=== PATIENT | female | born 1965 | race Caucasian/White ===

== ENCOUNTER 2016-12-23 22:37 | Emergency (ER) | payer SELFPAY ==
[~2016-12-23] VITALS: Ht 162.6 cm; Wt 88.6 kg
[~2016-12-23 22:37] MED LIST: METF500T PO; OMEP10EC PO
[2016-12-23 22:52] VITALS: BP 196/83
--- NOTE | 2016-12-23 23:23 | NUR ---
Patient being evaluated by physician at bedside.
--- NOTE | 2016-12-23 23:23 | NUR ---
PT AMBULATED TO ER BED GI
[2016-12-23 23:48] LABS: EOSINOPHILS # (AUTO) 0.1 K/uL (0-0.4)
[2016-12-23 23:51] LABS: BASOPHILS # (AUTO) 0.3 K/uL (0.00-0.22); BASOPHILS % (AUTO) 3.9 % (0.0-2.0); EOSINOPHILS % (AUTO) 1.4 % (0.0-4.0); HEMATOCRIT 42.6 % (36-48); HEMOGLOBIN 14.1 g/dL (12.0-16.0); LYMPHOCYTES # (AUTO) 2.9 K/uL (2.5-16.5); MEAN CORPUSCULAR HEMOGLOBIN 29 pg (27-31); MEAN CORPUSCULAR HGB CONC 33 g/dL (33-37); MEAN CORPUSCULAR VOLUME 88 fL (80-94); MONOCYTES # (AUTO) 0.7 K/uL (0.8-1.0); MONOCYTES % (AUTO) 9.1 % (1.7-9.3); NEUTROPHILS % (AUTO) 49.6 % (42.2-75.2); PLATELET COUNT (AUTO) 255 K/uL (140-450); RED BLOOD CELL COUNT(AUTO) 4.85 MIL/uL (4.20-5.40); RED CELL DISTRIBUTION WIDTH 12.8 % (11.6-13.7)
--- NOTE | 2016-12-23 23:58 | NUR ---
51Y/F PT. PRESENTS TO ED WITH C/O CHEST PAIN X3 DAYS. SEEN AT [facility] 2 DAYS AGO FOR SAME THING, DIAGNOSED FOR NON-SPECIFIC CHEST PAIN AND HTN. AAO X4, AMBULATORY WITH STEADY GAIT. RESPIRATIONS ROOM AIR, EVEN AND UNLABORED. SKIN WARM AND DRY. C/O CHEST PAIN 10. VSS, ER MADE AWARE OF PT. STATUS.
[2016-12-24 00:04] LABS: ANION GAP 16.9 (8-16); CARBON DIOXIDE 26.3 mmol/L (21-32); CREATININE 0.9 mg/dL (0.6-1.3); POTASSIUM 3.2 mmol/L (3.5-5.1)
[2016-12-24 00:09] LABS: ALBUMIN 3.9 g/dL (3.4-5.0); TOTAL BILIRUBIN 0.6 mg/dL (0.0-1.0)
[2016-12-24 00:10] LABS: PROTHROMBIN TIME 10.4 secs (10.8-13.4)
[2016-12-24 00:15] LABS: D-DIMER < 100 ng/ml (0-400)
--- NOTE | 2016-12-24 00:40 | NUR ---
Patient discharged with v/s stable. Written and verbal after care instructions given and explained. Patient alert, oriented and verbalized understanding of instructions. Ambulatory with steady gait. All questions addressed prior to discharge. ID band removed. Patient advised to follow up with PMD. Rx of TYLENOL NO.3 given. Patient educated on indication of medication including possible reaction and side effects. Opportunity to ask questions provided and answered.
[2016-12-24 00:41] VITALS: BP 164/83
== END 2016-12-24 00:40 | disposition home or self-care (01) ==
LOC: MED 22:37
DX: R07.89 Other chest pain (principal); E11.9 Type 2 diabetes mellitus without complications; I10 Essential (primary) hypertension; Z79.899 Other long term (current) drug therapy; Z79.84 Long term (current) use of oral hypoglycemic drugs
CPT/HCPCS: 36415; 71010; 80053; 83880; 84484; 85025; 85379; 85610; 85730; 93005; 99285; Q0092

== ENCOUNTER 2017-09-27 05:23 | Emergency (ER) | payer SELFPAY ==
[~2017-09-27] VITALS: Ht 162.6 cm; Wt 89.9 kg
[2017-09-27 05:27] VITALS: BP 161/90
[2017-09-27] MEDS ORDERED: BENA20TA PO (05:31)
[2017-09-27] MEDS ORDERED: KETOROLAC 60 MG/2 ML VIAL IM ONE ×2 (05:40→05:45)
--- NOTE | 2017-09-27 05:40 | NUR ---
51/F BIB FAMILY, C/O 11/12 INTERMITTENT SHARP SUBSTERNAL CHEST PAIN, RADIATING TO BACK, X3 DAYS, EXACERBATED BY COUGHING. PT REPORTS COUGH, SLIGHT SOB, NAUSEA. PT DENIES V/D, FEVER. PT DENIES SMOKING, ALCOHOL OR SUBSTANCE ABUSE. PT REPORTS TAKING IBUPROFEN WITH LITTLE RELIEF. HX COPD, HTN, DM. NKA. PATIENT POSITIONED FOR COMFORT; HOB ELEVATED; BEDRAILS UP X2; BED DOWN.
--- NOTE | 2017-09-27 05:45 | NUR ---
DR JONES AT BEDSIDE TO EVALUATE PT.
--- NOTE | 2017-09-27 06:15 | NUR ---
Patient discharged with v/s stable. Written and verbal after care instructions given and explained. Patient alert, oriented and verbalized understanding of instructions. Ambulatory with steady gait. All questions addressed prior to discharge. ID band removed. Patient advised to follow up with PMD. Rx of motrin 800mg, prednisone 20mg given. Patient educated on indication of medication including possible reaction and side effects. Opportunity to ask questions provided and answered.
[2017-09-27 06:16] VITALS: BP 152/81
== END 2017-09-27 06:15 | disposition home or self-care (01) ==
LOC: MED 05:23
DX: R07.89 Other chest pain (principal); R05 Cough; E11.9 Type 2 diabetes mellitus without complications; I10 Essential (primary) hypertension; Z79.84 Long term (current) use of oral hypoglycemic drugs; Z79.899 Other long term (current) drug therapy
CPT/HCPCS: 82948; 93005; 96372; 99283; J1885

== ENCOUNTER 2018-06-05 17:14 | Emergency (ER) | payer SELFPAY ==
[~2018-06-05] VITALS: Ht 152.4 cm; Wt 89.4 kg
[~2018-06-05 17:14] MED LIST changes: +BENA20TA PO; -OMEP10EC PO
[2018-06-05 17:21] VITALS: BP 175/82
--- NOTE | 2018-06-05 19:27 | NUR ---
[id number]---PATIENT LEFT WITHOUT BEING SEEN BY DR. [facility]. NO FURTHER CARE PROVIDED FOR PATIENT. 1929---2ND CALL, NO ANSWER. 1934---3RD CALL, NO ANSWER.
== END 2018-06-05 19:27 | disposition left against medical advice (07) ==
LOC: MED 17:14
DX: R11.0 Nausea (principal); R51 Headache; R07.89 Other chest pain; I10 Essential (primary) hypertension; E11.9 Type 2 diabetes mellitus without complications; Z53.21 Procedure and treatment not carried out due to patient leaving prior to being seen by health care provider

== ENCOUNTER 2018-06-05 20:24 | Emergency (ER) | payer SELFPAY ==
[~2018-06-05] VITALS: Ht 165.1 cm; Wt 90.0 kg
[2018-06-05 20:53] VITALS: BP 135/77
--- NOTE | 2018-06-05 21:07 | NUR ---
PT AMBULATED TO THE RESTROOM AND SENT OUT TO LOBBY, PT VSS
--- NOTE | 2018-06-05 21:15 | NUR ---
FLU SWAB COLLECTED AND SENT TO LAB.
--- NOTE | 2018-06-05 23:20 | NUR ---
PT AMBULATED TO BED 9 WITH VSS.
--- NOTE | 2018-06-05 23:27 | NUR ---
PT BIB FAMILY FOR FEVER AND COUGH X3 DAYS. PT CURRENT TEMPERATURE IS 100.3. PT REPORTS BODY ACHES AND HEADACHE AT 7/10. PT REPORTS DRY COUGH. PT RR EVEN SYMETRICAL AND NON-LABORED, WITH BREATH SOUNDS CLEAR THROUGHOUT. PT REPORTS N/V WITH BLOODY EMESIS. PT POSITIVE FOR INFLUENZA A. VSS. ER MD TO SEE PT. WILL CONTINUE TO MONITOR. MEDHX:HTN, DM RX:METFORMIN
[2018-06-06] MEDS ORDERED: NACL 0.9% 1,000 ML IV ONE (01:10)
[2018-06-06] MEDS ORDERED: KETOROLAC 30 MG/ML VIAL IVP ONE (01:10)
--- NOTE | 2018-06-06 02:10 | NUR ---
PT RESTING IN BED WITH EYES CLOSED, VSS. PT STATES PAIN HAS DECREASED TO A 5/10. NS BOLUS STILL RUNNING, LUNG SOUNDS CLEAR. JOEY CONTINUE TO MONITOR.
[2018-06-06 03:31] VITALS: BP 134/53
--- NOTE | 2018-06-06 03:31 | NUR ---
Patient discharged with v/s stable. Written and verbal after care instructions given and explained. Patient alert, oriented and verbalized understanding of instructions. Ambulatory with steady gait. All questions addressed prior to discharge. ID band removed. Patient advised to follow up with PMD. Rx of MOTRIN AND PREDNISONE given. Patient educated on indication of medication including possible reaction and side effects. Opportunity to ask questions provided and answered.
== END 2018-06-06 03:31 | disposition home or self-care (01) ==
LOC: MED 20:24
DX: J11.1 Influenza due to unidentified influenza virus with other respiratory manifestations (principal); R11.2 Nausea with vomiting, unspecified; M79.10 Myalgia, unspecified site; J44.9 Chronic obstructive pulmonary disease, unspecified; I10 Essential (primary) hypertension; E11.9 Type 2 diabetes mellitus without complications; Z79.84 Long term (current) use of oral hypoglycemic drugs; Z90.49 Acquired absence of other specified parts of digestive tract
CPT/HCPCS: 71045; 81002; 81025; 87804; 96361; 96374; 99284; J1885; J7030; 36415

== ENCOUNTER 2019-01-01 18:03 | Emergency (ER) | payer MEDICAID ==
[~2019-01-01] VITALS: Ht 165.1 cm; Wt 86.2 kg
[2019-01-01 18:16] VITALS: BP 141/93
[2019-01-01] MEDS ORDERED: KETOROLAC 60 MG/2 ML VIAL IM ONE (18:35)
[2019-01-01] MEDS ORDERED: INSULIN REGULAR, HUMAN 100 UNIT/ML VIAL SUBQ ONE (18:40)
[2019-01-01 19:17] VITALS: BP 155/82
== END 2019-01-01 19:16 | disposition home or self-care (01) ==
LOC: MED 18:03
DX: B34.9 Viral infection, unspecified (principal); R51 Headache; J44.9 Chronic obstructive pulmonary disease, unspecified; I10 Essential (primary) hypertension; E11.9 Type 2 diabetes mellitus without complications; Z90.49 Acquired absence of other specified parts of digestive tract; Z79.84 Long term (current) use of oral hypoglycemic drugs; Z79.899 Other long term (current) drug therapy
CPT/HCPCS: 81002; 81025; 82948; 96372; 99283; J1815; J1885

== ENCOUNTER 2020-11-20 23:14 | Emergency (ER) | payer MEDICAID ==
[~2020-11-20] VITALS: Ht 157.5 cm; Wt 81.6 kg
[2020-11-20 23:30] VITALS: BP 165/73
--- NOTE | 2020-11-20 23:30 | NUR ---
TO LOBBY A/W BED AMBULATORY ACCU CHECK 190 MG/DL ERMD NOTED
--- NOTE | 2020-11-20 23:50 | NUR ---
TO BED AMBULATORY
[2020-11-21] MEDS ORDERED: ASPIRIN 325 MG TAB PO ONE (00:10)
--- NOTE | 2020-11-21 00:10 | NUR ---
54 YO F BIB SELF WITH C/C OF HTN. PT STATED HER BP AT HOME WAS IN THE 140S. PT STATED SHE HAD CHEST PAIN 6/10 X1DAY NONRAD. BP IS 149/74. DENIES SOB, N/V/D. DENIES TAKING MEDICATION. HX: DM, HTN RX: METFORMIN, BENAZPRIL
--- NOTE | 2020-11-21 00:24 | NUR ---
LAB AT BEDSIDE
[2020-11-21 00:41] LABS: BASOPHILS % (AUTO) 0.3 % (0.0-2.0); EOSINOPHILS # (AUTO) 0.1 K/uL (0-0.4); EOSINOPHILS % (AUTO) 1.4 % (0.0-4.0); HEMATOCRIT 42.9 % (36-48); HEMOGLOBIN 14.3 g/dL (12.0-16.0); LYMPHOCYTES # (AUTO) 2.8 K/uL (2.5-16.5); LYMPHOCYTES % (AUTO) 40.6 % (20.5-51.1); MEAN CORPUSCULAR HEMOGLOBIN 30 pg (27-31); MEAN CORPUSCULAR HGB CONC 33 g/dL (33-37); MEAN CORPUSCULAR VOLUME 89.3 fL (80-94); MONOCYTES # (AUTO) 0.5 K/uL (0.8-1.0); MONOCYTES % (AUTO) 7.3 % (1.7-9.3); NEUTROPHILS # (AUTO) 3.5 K/uL (1.8-7.7); NEUTROPHILS % (AUTO) 50.4 % (42.2-75.2); PLATELET COUNT (AUTO) 252 K/uL (140-450); RED CELL DISTRIBUTION WIDTH 13.1 % (11.6-13.7)
[2020-11-21 01:02] LABS: ALBUMIN 3.9 g/dL (3.4-5.0); ANION GAP 14.1 (8-16); CARBON DIOXIDE 25.3 mmol/L (21-32); CREATININE 0.6 mg/dL (0.6-1.3); POTASSIUM 3.4 mmol/L (3.5-5.1); TOTAL BILIRUBIN 0.6 mg/dL (0.0-1.0)
[2020-11-21] MEDS ORDERED: POTASSIUM CHLORIDE 10 MEQ TABER PO ONE (01:35)
[2020-11-21] MEDS ORDERED: CLONIDINE HYDROCHLORIDE 0.1 MG TAB PO ONE (01:35)
[2020-11-21 02:12] VITALS: BP 157/79
--- NOTE | 2020-11-21 02:12 | NUR ---
Patient discharged with v/s stable. Written and verbal after care instructions given and explained. Patient verbalized understanding. Ambulatory with steady gait. All questions addressed prior to discharge. Advised to follow up with PMD.
== END 2020-11-21 02:12 | disposition home or self-care (01) ==
LOC: MED 23:14
DX: I10 Essential (primary) hypertension (principal); E11.9 Type 2 diabetes mellitus without complications; J44.9 Chronic obstructive pulmonary disease, unspecified
CPT/HCPCS: 36415; 71045; 80053; 84484; 85025; 93005; 99285

== ENCOUNTER 2022-01-06 12:09 | Emergency (ER) | payer SELFPAY ==
[~2022-01-06] VITALS: Ht 156.2 cm; Wt 82.1 kg
[~2022-01-06 12:09] MED LIST changes: +METF-346 PO; -METF500T PO
[2022-01-06 12:18] VITALS: BP 148/75
[2022-01-06 13:37] LABS: BASOPHILS % (AUTO) 0.2 % (0.0-2.0); EOSINOPHILS % (AUTO) 0.7 % (0.0-4.0); HEMATOCRIT 38.8 % (36-48); HEMOGLOBIN 13.2 g/dL (12.0-16.0); LYMPHOCYTES # (AUTO) 1.8 K/uL (2.5-16.5); LYMPHOCYTES % (AUTO) 26.8 % (20.5-51.1); MEAN CORPUSCULAR HEMOGLOBIN 30 pg (27-31); MEAN CORPUSCULAR HGB CONC 34 g/dL (33-37); MEAN CORPUSCULAR VOLUME 87.6 fL (80-94); MONOCYTES # (AUTO) 0.3 K/uL (0.8-1.0); MONOCYTES % (AUTO) 5.1 % (1.7-9.3); NEUTROPHILS # (AUTO) 4.5 K/uL (1.8-7.7); NEUTROPHILS % (AUTO) 67.2 % (42.2-75.2); PLATELET COUNT (AUTO) 217 K/uL (140-450); RED BLOOD CELL COUNT(AUTO) 4.43 MIL/uL (4.20-5.40); RED CELL DISTRIBUTION WIDTH 13.2 % (11.6-13.7); WHITE BLOOD COUNT (AUTO) 6.6 K/uL (4.8-10.8)
[2022-01-06 14:07] LABS: ALBUMIN 3.6 g/dL (3.4-5.0); ANION GAP 15.6 (8-16); ASPARTATE AMINOTRANSFERASE 19 U/L (15-37); CARBON DIOXIDE 25.5 mmol/L (21-32); CHLORIDE 102 mmol/L (98-107); CREATININE 0.6 mg/dL (0.6-1.3); GFR ARICAN-AMERICAN 133 mL/min (>90); GLUCOSE 173 mg/dL (74-106); POTASSIUM 4.1 mmol/L (3.5-5.1); SODIUM SERUM 139 mmol/L (136-145); TOTAL BILIRUBIN 0.8 mg/dL (0.0-1.0); UREA NITROGEN, BLOOD 10 mg/dL (7-18)
[2022-01-06] MEDS ORDERED: PROCHLORPERAZINE 10 MG/2 ML VIAL IM ONE (14:40)
[2022-01-06] MEDS ORDERED: KETOROLAC 15 MG/ML VIAL IM ONE (14:40)
--- NOTE | 2022-01-06 15:15 | NUR ---
56/F PRESENTS TO ED WITH C/O INTERMITTENT EPISODES OF MODERATE PRESSURE LIKE CHEST PAIN X2 WEEKS. PATIENT ALSO C/O HEADACHE X6 MONTHS, DENIES N/V/D OR RECENT INJURY OR TRAUMA. PATIENT STATING BP HAS BEEN ELEVATING AT HOME DUE TO PAIN BUT REPORTS SHE HAS BEEN COMPLIANT WITH HER MEDICATIONS. PATIENT DENIES HEADACHE, DIZZINESS, VISION CHANGES OR NUMBNESS OR TINGLING.
[2022-01-06] MEDS ORDERED: IBUP-2213 PO (17:35)
[2022-01-06] MEDS ORDERED: LID5T TP (17:36)
[2022-01-06 18:06] VITALS: BP 132/72
--- NOTE | 2022-01-06 18:07 | NUR ---
Patient discharged with v/s stable. Written and verbal after care instructions given and explained. Patient alert, oriented and verbalized understanding of instructions. Ambulatory with steady gait. All questions addressed prior to discharge. ID band removed. Patient advised to follow up with PMD. Rx of LIDODERM, IBU given. Patient educated on indication of medication including possible reaction and side effects. Opportunity to ask questions provided and answered.
== END 2022-01-06 18:07 | disposition home or self-care (01) ==
LOC: MED 12:09
DX: R07.89 Other chest pain (principal); R51.9 Headache, unspecified; J44.9 Chronic obstructive pulmonary disease, unspecified; E11.9 Type 2 diabetes mellitus without complications; I10 Essential (primary) hypertension; Z79.899 Other long term (current) drug therapy; Z79.1 Long term (current) use of non-steroidal anti-inflammatories (NSAID)
CPT/HCPCS: 36415; 70450; 80053; 81002; 84484; 85025; 93005; 96372; 99285; J0780; J1885; Q0163

== ENCOUNTER 2022-02-02 18:50 | Emergency (ER) | payer MEDICAID ==
[~2022-02-02] VITALS: Ht 162.6 cm; Wt 83.9 kg
[~2022-02-02 18:50] MED LIST changes: +IBUP-2213 PO; +LID5T TP
[2022-02-02 18:57] VITALS: BP 155/68
--- NOTE | 2022-02-02 19:00 | NUR ---
PT TO BED 12
--- NOTE | 2022-02-02 19:05 | NUR ---
SEEN AND EXAMINED BY GUDELIA WITH ORDERS, CARRIED OUT
[2022-02-02] MEDS ORDERED: hydrALAZINE 20 MG/ML VIAL IVP ONE (19:10)
[2022-02-02] MEDS ORDERED: MECLIZINE 25 MG TAB PO ONE (19:25)
[2022-02-02] MEDS ORDERED: ONDANSETRON 4 MG ODT PO ONE (19:25)
[2022-02-02 19:33] LABS: BASOPHILS % (AUTO) 0.3 % (0.0-2.0); EOSINOPHILS # (AUTO) 0.1 K/uL (0-0.4); EOSINOPHILS % (AUTO) 1.7 % (0.0-4.0); HEMATOCRIT 38.4 % (36-48); HEMOGLOBIN 12.9 g/dL (12.0-16.0); LYMPHOCYTES # (AUTO) 2.6 K/uL (2.5-16.5); LYMPHOCYTES % (AUTO) 39.1 % (20.5-51.1); MEAN CORPUSCULAR HEMOGLOBIN 30 pg (27-31); MEAN CORPUSCULAR HGB CONC 34 g/dL (33-37); MEAN CORPUSCULAR VOLUME 89.1 fL (80-94); MONOCYTES # (AUTO) 0.5 K/uL (0.8-1.0); NEUTROPHILS # (AUTO) 3.4 K/uL (1.8-7.7); NEUTROPHILS % (AUTO) 51.9 % (42.2-75.2); PLATELET COUNT (AUTO) 233 K/uL (140-450); RED BLOOD CELL COUNT(AUTO) 4.31 MIL/uL (4.20-5.40); RED CELL DISTRIBUTION WIDTH 13.2 % (11.6-13.7); WHITE BLOOD COUNT (AUTO) 6.6 K/uL (4.8-10.8)
[2022-02-02 19:54] LABS: ALBUMIN 3.6 g/dL (3.4-5.0); ANION GAP 14.2 (8-16); CARBON DIOXIDE 28.2 mmol/L (21-32); CREATININE 0.7 mg/dL (0.6-1.3); POTASSIUM 4.4 mmol/L (3.5-5.1); TOTAL BILIRUBIN 0.5 mg/dL (0.0-1.0)
[2022-02-02] MEDS ORDERED: MECL-303 PO (20:30)
[2022-02-02] MEDS ORDERED: ONDA-188 PO (20:30)
[2022-02-02] MEDS ORDERED: MECLIZINE 25 MG TAB ONE (22:04)
[2022-02-02] MEDS ORDERED: hydrALAZINE 20 MG/ML VIAL ONE (22:04)
[2022-02-02] MEDS ORDERED: ONDANSETRON 4 MG ODT ONE (22:05)
[2022-02-02 22:51] VITALS: BP 132/72
--- NOTE | 2022-02-02 22:55 | NUR ---
patient alert oriented stable vitals signs in normal limits SR on monitor all DC instruction gave and explained We recomemended to follow up with PCP
== END 2022-02-02 22:47 | disposition home or self-care (01) ==
LOC: MED 18:50
DX: I10 Essential (primary) hypertension (principal); J44.9 Chronic obstructive pulmonary disease, unspecified; E11.9 Type 2 diabetes mellitus without complications; Z79.4 Long term (current) use of insulin; Z79.899 Other long term (current) drug therapy
CPT/HCPCS: 36415; 71045; 80053; 83880; 84484; 85025; 93005; 99285; J0360; J8597; Q0092; Q0162

== ENCOUNTER 2023-03-11 08:38 | Emergency (ER) | payer MEDICAID ==
[~2023-03-11] VITALS: Ht 157.5 cm; Wt 75.3 kg
[~2023-03-11 08:38] MED LIST changes: +MECL-303 PO; +ONDA-188 PO
[2023-03-11 09:05] VITALS: BP 145/74; PULSE 73; RESP 18; TEMP 99.3; O2SAT 100
[2023-03-11 09:26] VITALS: TEMP 99.3
[2023-03-11] MEDS ORDERED: KETOROLAC 30 MG/ML VIAL IVP ONE (10:00)
[2023-03-11] MEDS ORDERED: PROCHLORPERAZINE 10 MG/2 ML VIAL IVP ONE (10:00)
[2023-03-11 10:39] LABS: BASOPHILS % (AUTO) 0.2 % (0.0-2.0); EOSINOPHILS # (AUTO) 0.1 K/uL (0-0.4); EOSINOPHILS % (AUTO) 0.9 % (0.0-4.0); HEMATOCRIT 39.6 % (36-48); HEMOGLOBIN 13.2 g/dL (12.0-16.0); LYMPHOCYTES # (AUTO) 1.6 K/uL (2.5-16.5); LYMPHOCYTES % (AUTO) 28.2 % (20.5-51.1); MEAN CORPUSCULAR HEMOGLOBIN 30 pg (27-31); MEAN CORPUSCULAR HGB CONC 33 g/dL (33-37); MEAN CORPUSCULAR VOLUME 88.7 fL (80-94); MONOCYTES # (AUTO) 0.3 K/uL (0.8-1.0); MONOCYTES % (AUTO) 4.6 % (1.7-9.3); NEUTROPHILS # (AUTO) 3.8 K/uL (1.8-7.7); NEUTROPHILS % (AUTO) 66.1 % (42.2-75.2); PLATELET COUNT (AUTO) 240 K/uL (140-450); RED BLOOD CELL COUNT(AUTO) 4.46 MIL/uL (4.20-5.40); RED CELL DISTRIBUTION WIDTH 13.5 % (11.6-13.7); WHITE BLOOD COUNT (AUTO) 5.8 K/uL (4.8-10.8)
[2023-03-11 10:44] LABS: ANION GAP 12.9 (8-16); CALCIUM 8.8 mg/dL (8.5-10.1); CREATININE 0.5 mg/dL (0.6-1.3); POTASSIUM 3.9 mmol/L (3.5-5.1)
[2023-03-11 11:05] LABS: ALANINE AMINOTRANSFERASE 22 U/L (12-78); ALBUMIN 3.7 g/dL (3.4-5.0); ALKALINE PHOSPHATASE 113 U/L (50-136); ASPARTATE AMINOTRANSFERASE 15 U/L (15-37); BILIRUBIN,DIRECT 0.1 mg/dL (0.0-0.3); TOTAL BILIRUBIN 0.7 mg/dL (0.0-1.0)
[2023-03-11 11:15] LABS: INR 1.01 (0.8-1.2); PROTHROMBIN TIME 10.6 secs (10.8-13.4)
[2023-03-11] MEDS ORDERED: IBUP-2213 PO (12:30)
[2023-03-11 12:53] LABS: PARTIAL THROMBOPLASTIN TIME 20.1 secs (22-35.6)
[2023-03-11 12:57] VITALS: BP 111/51; PULSE 66; RESP 15; O2SAT 97
== END 2023-03-11 12:57 | disposition home or self-care (01) ==
LOC: MED 08:38
DX: I10 Essential (primary) hypertension (principal); R51.9 Headache, unspecified; J44.9 Chronic obstructive pulmonary disease, unspecified; E11.9 Type 2 diabetes mellitus without complications; Z79.899 Other long term (current) drug therapy; Z79.1 Long term (current) use of non-steroidal anti-inflammatories (NSAID)
CPT/HCPCS: 36415; 70450; 80048; 80076; 84484; 85025; 85610; 85730; 93005; 96374; 96375; 99285; J0780; J1885